=== PATIENT | female | born 1965 | race Caucasian/White ===

== ENCOUNTER → 2016-07-19 | Outpatient (CLI) | payer BC ==
--- NOTE | 2016-07-23 08:13 | MM ---
Reason for exam: screening (asymptomatic). Last mammogram was performed 3 years and 6 months ago. History: Patient is nulliparous. Took hormonal contraceptives for 10 years beginning at age 18. Physical Findings: A clinical breast exam by your physician is recommended on an annual basis and results should be correlated with mammographic findings. MG Screening Mammo w CAD Bilateral CC and MLO view(s) were taken. Prior study comparison: February 01, 2013, bilateral digital screening mammo w/CAD. January 24, 2012, bilateral digital screening mammo w/CAD. January 17, 2011, bilateral digital screening mammo w/CAD. The breast tissue is heterogeneously dense. This may lower the sensitivity of mammography. Stable regional calcifications in both breasts from 2012. No significant changes when compared with prior studies. ASSESSMENT: Negative, BI-RAD 1 RECOMMENDATION: Routine screening mammogram of both breasts in 1 year.
== END | disposition home or self-care (01) ==
LOC: RADMAMWWP 08:22
PROVIDERS: ATTEND Obstetrics & Gynecology
DX: Z12.31 Encounter for screening mammogram for malignant neoplasm of breast (principal)

== ENCOUNTER → 2018-12-08 | Outpatient (CLI) | payer BC ==
--- NOTE | 2018-12-08 16:23 | CT ---
EXAMINATION TYPE: CT abdomen pelvis wo con DATE OF EXAM: 12/08/2018 COMPARISON: None HISTORY: 53-year-old female right flank pain CT DLP: 445 mGycm. Automated exposure control for dose reduction was used. TECHNIQUE: Contiguous axial scanning of the abdomen and pelvis without IV contrast. Coronal and sagit tigre reconstructions performed. FINDINGS: Heart normal size without pericardial effusion. Strandy atelectasis left base. No pleural effusion. Cholecystectomy clips. Noncontrasted appearance of the liver, adrenal glands, kidneys, spleen, pancreas shows no gross abnor mality by noncontrast CT. No nephrolithiasis or hydronephrosis. No dilated small bowel, free fluid, or free air. Normal appendix. No significant stool burden. Mild sigmoid diverticulosis. No pericolonic inflammator y change. Some scattered prominent but nonenlarged mesenteric lymph nodes measuring up to 6 mm. Bladder urine distended. Multiple pelvic phlebolith. Uterus anteverted. Prominent hypoechoic area in the region of the cervix measures 2.1 cm. Both ovaries are visualized. There appears to be a 1.6 cm c ystic structure within left ovary. No abnormal fluid collection pelvis or pelvic lymphadenopathy. Bones: Degenerative disc disease L5-S1. Some sacral Tarlov cysts are suggested. IMPRESSION: 1. No nephrolithiasis or hydronephrosis. 2. Sigmoid diverticulosis without acute diverticulitis. 3. A 2.1 cm hypodense area in the region of the cervix of uncertain clinical significance. Consider pelvic ultrasound to further evaluate and exclude an underlying lesion. This can also further evaluat e a 1.6 cm cystic structure at the left ovary.
== END | disposition home or self-care (01) ==
LOC: RADCTMAIN 15:48
PROVIDERS: ATTEND Family Medicine
DX: K57.30 Diverticulosis of large intestine without perforation or abscess without bleeding (principal); R93.89 Abnormal findings on diagnostic imaging of other specified body structures; R31.9 Hematuria, unspecified
CPT/HCPCS: 74176

== ENCOUNTER → 2018-12-21 | Outpatient (CLI) | payer BC ==
--- NOTE | 2018-12-21 16:29 | US ---
EXAMINATION TYPE: US transvaginal DATE OF EXAM: 12/21/2018 COMPARISON: CT December 08, 2018 CLINICAL HISTORY: R10.9 abdominal pain, N83.[address] TECHNIQUE: Transvaginal (TV). Transvaginal sonographic images of the pelvis were acquired. Date of LMP: 03/30/2019 EXAM MEASUREMENTS: Uterus: 9.9 x 5.0 x 4.8 cm Endometrial Stripe: 0.7 cm Right Ovary: 3.3 x 1.6 x 2.1 cm Left Ovary: 4.6 x 2.2 x 3.1 cm 1. Uterus: Anteverted Heterogeneous, probable fibroid anterior fundus= 1.3 x 1.2 x 1.7 cm/ probabl e fibroid posterior fundus= 2.1 x 1.5 x 1.8 cm/ Fluid within cervix, Small Nabothian cyst 2. Endometrium: wnl 3. Right Ovary: wnl 4. Left Ovary: Cyst= 3.0 x 2.2 x 3.4 cm 5. Bilateral Adnexa: wnl 6. Posterior cul-de-sac: wnl Some nabothian cysts are seen in the cervix on initial images. Small amount of fluid is seen in the e ndometrial canal at level of cervix. Uterus is heterogeneous with suspected 2.1 cm subserosal fibroid towards the fundus. No free fluid in pelvic cul-de-sac. Left ovary shows 3.4 cm simple appearing thi n-walled cyst, larger than suspected on recent CT. IMPRESSION: There is 3.4 cm simple appearing thin-walled cyst or cystic lesion left ovary, with abnor mal finding in postmenopausal female. Tumor marker correlation and gynecology oncology referral shoul d be considered. At minimum annual ultrasound surveillance is advised. Probable 2.1 cm subserosal fib roid.
== END ==
LOC: RADUSWWP 15:59
PROVIDERS: ATTEND Family Medicine
DX: N83.202 Unspecified ovarian cyst, left side (principal)
CPT/HCPCS: 76830

== ENCOUNTER → 2018-12-24 | Outpatient (CLI) | payer BC | END | disposition home or self-care (01) | LOC: LABWHC1 10:48 | PROVIDERS: ATTEND Nurse Practitioner Family | DX: D25.9 Leiomyoma of uterus, unspecified (principal); N83.202 Unspecified ovarian cyst, left side | CPT/HCPCS: 36415; 86304 ==